=== PATIENT | female | born 1995 | race Caucasian/White ===

== ENCOUNTER 2018-08-01 22:56 | Emergency (ER) | payer OTHER ==
[~2018-08-01 22:56] MED LIST: ETHI1TAB16 PO; NORG1TAB74 PO
--- NOTE | 2018-08-01 23:15 | ER Report ---
History and Physical Time Seen By MD: 23:15 Hx. of Stated Complaint: PATIENT REPORTS PAIN AND BURNING WITH URINATION THAT STARTED ON SATURDAY. STATES THE PAIN NOW RADIATES TO HER BACK. HPI/ROS CHIEF COMPLAINT: dysuria and some left back pain HISTORY OF PRESENT ILLNESS: This is a 23 year old female. Had some dysuria start last Saturday, then seemed to improve. Drinking cranberry juice. Then the last 24 hours had increased symptoms including some pain in her back on left side. Dysuria with frequency. No change in color of urine. Last period was 2 weeks ago and normal for her. No cough or shortness of breath. No fevers. No nausea or vomiting. Normal bowels. Allergies: Coded Allergies: No Known Drug Allergies (Unverified , 08/01/18) Home Meds Active Scripts Phenazopyridine Hcl (PHENAZOPYRIDINE HCL) 200 Mg Tablet, 200 MG PO TID PRN for PAIN, #10 TAB 0 Refills Prov:GUANAKO CAMACHO MD 08/01/18 Amoxicillin (AMOXICILLIN) 500 Mg Capsule, 1 CAP PO Q8H, #15 CAPSULE 0 Refills Prov:GUANAKO CAMACHO MD 08/01/18 Ethinyl Estradiol/Drospirenone (GIANVI 3 MG-0.02 MG TABLET) 1 Each Tablet, 1 EACH PO DAILY for 30 Days, #3 PACK 6 Refills Prov:MARTY NGUYEN DO 05/20/18 Reviewed Nurses Notes: Yes Smoking Status: Never Smoker Constitutional Vital Sign - Last 24 Hours 08/01/18 08/01/18 08/01/18 08/01/18 23:00 23:04 23:09 23:30 Temp 98.5 Pulse 123 93 Resp 14 B/P (MAP) 135/97 135/97 (110) 117/64 (81) Pulse Ox 95 96 O2 Delivery Room Air 08/01/18 08/01/18 08/02/18 23:39 23:44 00:00 Pulse 95 104 B/P (MAP) 117/90 (99) Pulse Ox 95 95 Physical Exam General Appearance: Alert, no distress. Respiratory: Lungs clear, breathing easily. Cardiac: regular rate and rhythm. Gastrointestinal: Abdomen is soft, non-tender to palpation. Has some mild pain with palpation in left back, but no CVA tenderness with percussion. Musculoskeletal: No tenderness in midline. Skin: No rashes or lesions. DIFFERENTIAL DIAGNOSIS: After history and physical exam differential diagnosis was considered for symptoms suggesting urinary tract infection. We'll get a urinalysis and then decide on further treatment and workup from there. Medical Decision Making Data Points Laboratory Hematology Test 08/01/18 23:02 Urine Color Yellow Urine Clarity Slightly-cloudy Urine pH 5.0 pH (4.8-9.5) Urine Specific [place] 1.021 Urine Protein 30 mg/dL (NEGATIVE) Urine Glucose (UA) Negative mg/dL (NEGATIVE) Urine Ketones Negative mg/dL (NEGATIVE) Urine Blood Moderate (NEGATIVE) Urine Nitrite Negative (NEGATIVE) Urine Bilirubin Negative (NEGATIVE) Urine Urobilinogen Negative mg/dL (0.2-1.9) Urine Leukocyte Esterase Moderate (NEGATIVE) Urine RBC 33 /HPF (0-2/HPF) Urine WBC 162 /HPF (0-5/HPF) Urine Squamous Epithelial Cells Many /LPF (</=FEW) Urine Bacteria Many /HPF (NONE-FEW) Urine Mucus None /HPF (NONE-FEW) Urine HCG, Qualitative Negative (NEGATIVE) Chemistry Test 08/01/18 23:02 Urine Color Yellow Urine Clarity Slightly-cloudy Urine pH 5.0 pH (4.8-9.5) Urine Specific [place] 1.021 Urine Protein 30 mg/dL (NEGATIVE) Urine Glucose (UA) Negative mg/dL (NEGATIVE) Urine Ketones Negative mg/dL (NEGATIVE) Urine Blood Moderate (NEGATIVE) Urine Nitrite Negative (NEGATIVE) Urine Bilirubin Negative (NEGATIVE) Urine Urobilinogen Negative mg/dL (0.2-1.9) Urine Leukocyte Esterase Moderate (NEGATIVE) Urine RBC 33 /HPF (0-2/HPF) Urine WBC 162 /HPF (0-5/HPF) Urine Squamous Epithelial Cells Many /LPF (</=FEW) Urine Bacteria Many /HPF (NONE-FEW) Urine Mucus None /HPF (NONE-FEW) Urine HCG, Qualitative Negative (NEGATIVE) Urinalysis Test 08/01/18 23:02 Urine Color Yellow Urine Clarity Slightly-cloudy Urine pH 5.0 pH (4.8-9.5) Urine Specific [place] 1.021 Urine Protein 30 mg/dL (NEGATIVE) Urine Glucose (UA) Negative mg/dL (NEGATIVE) Urine Ketones Negative mg/dL (NEGATIVE) Urine Blood Moderate (NEGATIVE) Urine Nitrite Negative (NEGATIVE) Urine Bilirubin Negative (NEGATIVE) Urine Urobilinogen Negative mg/dL (0.2-1.9) Urine Leukocyte Esterase Moderate (NEGATIVE) Urine RBC 33 /HPF (0-2/HPF) Urine WBC 162 /HPF (0-5/HPF) Urine Squamous Epithelial Cells Many /LPF (</=FEW) Urine Bacteria Many /HPF (NONE-FEW) Urine Mucus None /HPF (NONE-FEW) Urine HCG, Qualitative Negative (NEGATIVE) ED Course/Re-evaluation ED Course Urinalysis was obtained and does show signs of urinary tract infection. Culture is being done. Start amoxicillin for 5 days as well as Pyridium for symptom management. Decision to Disposition Date: August 01, 2018 Decision to Disposition Time: 23:54 Depart Departure Latest Vital Signs Vital Signs Date Time Temp Pulse Resp B/P (MAP) Pulse Ox O2 Delivery O2 Flow Rate FiO2 08/02/18 00:00 117/90 (99) 08/01/18 23:44 104 95 08/01/18 23:00 98.5 14 Room Air Impression: Primary Impression: Urinary tract infection Condition: Improved Disposition: HOME OR SELF-CARE New Scripts Phenazopyridine Hcl (PHENAZOPYRIDINE HCL) 200 Mg Tablet 200 MG PO TID PRN for PAIN, #10 TAB 0 Refills Prov: GUANAKO CAMACHO MD 08/01/18 Amoxicillin (AMOXICILLIN) 500 Mg Capsule 1 CAP PO Q8H, #15 CAPSULE 0 Refills Prov: GUANAKO CAMACHO MD 08/01/18 Patient Instructions: Urinary Tract Infection in Women (ED) Problem Qualifiers Primary Impression: Urinary tract infection Urinary tract infection type: acute cystitis Hematuria presence: without hematuria Qualified Codes: N30.00 - Acute cystitis without hematuria GUANAKO CAMACHO MD August 01, 2018 23:15
[2018-08-01] MEDS ORDERED: PHENAZOPYRIDINE 200 MG TAB TH 2 TAB/BOTTLE PO ONE (23:55)
[2018-08-01] MEDS ORDERED: AMOXICILLIN 500 MG CAP PO ONE (23:55)
[2018-08-01] MEDS ORDERED: AMOX-362 PO (23:56)
[2018-08-01] MEDS ORDERED: PHEN200T32 PO (23:56)
[2018-08-02] VITALS: BP 117/90
== END 2018-08-02 00:07 | disposition home or self-care (01) ==
LOC: ER 23:21
DX: N30.00 Acute cystitis without hematuria (principal)
CPT/HCPCS: 81001; 81025; 87077; 87088; 87186; 99282